=== PATIENT | male | born 1945 | race Caucasian/White ===

== ENCOUNTER 2025-09-20 14:24 | Outpatient (REF) | payer MEDICARE, SELFPAY ==
--- OUTSIDE RECORDS SUMMARY | 2025-09-20 16:21 | XMS_ITS | Clinical Summary ---
Author Organization [facility] Address [address] [place] [address] Phone Care Team Providers Care Senior Fire Protection Engineer Name Role Phone Michael Oneill MD Primary Care Provider Encounters Date Type Department Care Team Description 09/08/2025 7:22 AM EDT - 09/08/2025 11:59 PM EDT Hospital Encounter [address] [address] Michael Oneill MD Discharge Disposition: Home or Self Care 08/27/2025 Procedure Pass [address] [address] 08/27/2025 Transcribe Orders Virtual Department [address] [place] [address] Michael Oneill MD Radiculopathy, lumbar region (Primary Dx); Dorsalgia, unspecified; Kissing spine, lumbar region from Last 3 Months Social History Tobacco Use Types Packs/Day Years Used Date Smoking Tobacco: Never Assessed Education Answer Date Recorded Are you interested in more education? Not on dmitry e 03/25/2023 Are you concerned about learning? Not on file 03/25/2023 No 03/25/2023 No 03/25/2023 Digital Access Answer Date Recorded No 04/25/2023 No 04/25/2023 No 04/25/2023 Reliable internet access at home? Not on file 04/25/2023 Device with a working camera? Not on file Sex and Gender Information Value Date Recorded Sex Assigned at Male 03/07/2023 10:58 AM EDT Legal Sex Male 11:05 PM EDT Gender Identity Male 03/07/2023 10:51 AM EDT Sexual Orientation Straight 03/07/2023 10 :58 AM EDT Last Filed Vital Signs Vital Sign Reading Time Taken Comments Blood Pressure - - Pulse - - Temperature - - Respiratory Rate - - Oxygen Saturation - - Inhaled Oxygen Concentration - - Weight 93 kg (205 lb) 09/02/2025 7:49 PM EDT Height 177.8 cm (5' 10 ) 09/02/2025 7:49 PM EDT Body Mass Index 29.41 09/02/2025 7:49 PM EDT Plan of Treatment Health Maintenance Due Date Last Done Comments Adult Td,Tdap Booster 1946 LIPID PANEL 1946 DEPRESSION SCREENING 1958 SMOKING Hx and SMOKELESS TOBACCO SCREENING 1959 HEPATITIS C SCREENING 1964 PNEUMOCOCCAL VACCINES (50+ years) (1 of 1 - PCV) 1996 ZOSTER VACCINES (1 of 2) 1996 RSV VACCINE (1 - 1-dose 75+ series) 2021 INFLUENZA VACCINE (#1) 2025 , 10/14/2022, 08/27/2021, Additional history exists COVID-19 VACCINE ( season) 2025 09/05/2023, 08/27/2022, 09/30/2021, Additional history exists HEPATITIS A VACCINES Aged Out No long er eligible based on patient's age to complete this topic HIB VACCINES Aged Out No longer eligi ble based on patient's age to complete this topic MENINGOCOCCAL VACCINES (ACWY) Aged Out No longer eligible based on patient's age to complete this topic MENINGOCOCCAL VACCINES (B) Aged Out N o longer eligible based on patient's age to complete this topic Medical Devices Not on file Procedures Procedure Name Priority Date/Time Associated Diagnosis Comments MRI LUMBAR SPINE (NEURO) WITHOUT CONTRAST Routine 09/08/2025 8:44 AM EDT Radiculopathy, lumbar region Dorsalgia, unspecified Kissing spine, lumbar region from Last 3 Months Results * MRI LUMBAR SPINE (NEURO) WITHOUT CONTRAST (09/08/2025 8:44 AM EDT) Anatomical Region Laterality Modality L-spine Magnetic Resonan ce 09/11/2025 8:53 AM EDT Impressions 09/11/2025 9:28 AM EDT 1. Extensive degenerative disc disease and facet joint arthropathy at multiple levels, with mild canal stenosis at multiple levels, as discussed above. 2. Multilevel foramina stenosis, moderate at multiple levels, as above. 3. Probable renal cysts. Narrative 09/11/2025 9:28 AM EDT MRI LUMBAR SPINE (NEURO) WITHOUT CONTRAST Referring clinician's provided indication for this examination in Epic: Outside Radiology Order; radiculopathy TECHNIQUE: MRI LUMBAR SPINE (NEURO) WITHOUT CONTRAST Multi-sequence, multi-planar MRI of the lumbar spine was performed without intravenous contrast. COMPARISON: Lumbar spine MRI March 23, 2023. FINDINGS: LUMBAR SPINE: Alignment and Vertebrae: Minimal anterolisthesis at L2-L3, slightly more prominent in this exam. Vertebral body height is normal. No compression fracture. Marrow: Marrow is slightly heterogeneous. No worrisome bone marrow replacing lesion. Possibility focal fat or small bone hemangioma at L2. Discs and Endplates: Loss of intervertebral disc height and signal from L1-L2 through L5-S1, severe at L5-S1 level. Schmorl's nodes are seen at L1-L2 with Modic type II endplate changes. Small Schmorl's nodes also seen at L3 and L4 inferior endplates. Compared to March 23, 2023 there is possible slight decreased height of the L1- L2 and L2-3 intervertebral disc spaces, otherwise other findings are grossly stable. Conus: The tip of the conus ends at L1-L2. No compression. Soft Tissues: No prevertebral edema. Other Findings: The large T2 hyperintensities in the kidneys bilaterally, probably renal cyst, not completely included in the volume of acquisition. The largest in the left kidney measuring 5.7 cm on the right 5.7 cm best seen on the coronal localizer sequence. Findings by level: T12-L1: Probably minimal left subarticular zone disc protrusion. Mild facet joint arthropathy. No spinal or foraminal stenosis. L1-L2: Disc bulge and mild osteophytic ridging. Facet joint arthropathy. There is mild encroachment of the left subarticular zone. No high-grade spinal canal stenosis. Mild left greater than right foraminal stenosis. L2-L3: Disc bulge. Facet hypertrophy contributing to the moderate encroachment of the left subarticular zone and left transversing L3 nerve roots (5:19). There is mild spinal canal stenosis. Mild left greater than right foraminal stenosis. L3-L4: Disc bulge with a central disc protrusion in contact with both L4 nerve roots. Facet hypertrophy and ligamentum flavum thickening. Mild spinal canal stenosis. Nscf-cs-gcntasye bilateral foraminal stenosis. L4-L5: Disc bulge and osteophyte complex. Central disc protrusion slightly eccentric toward the left with possible left subarticular zone component with mild to moderate encroachment of the left L5 nerve roots. Facet arthropathy. Mild spinal canal stenosis. Moderate bilateral foraminal stenosis. L5-S1: Disc osteophyte complex lateralizing toward the left. Facet joint hypertrophy. No significant spinal canal stenosis. Moderate left and mild right foraminal stenosis. Procedure Note Waldo Dowd MD - 09/11/2025 MRI LUMBAR SPINE (NEURO) WITHOUT CONTRAST Referring clinician's provided indication for this examination in Epic:Outside Radiology Order; radiculopathy TECHNIQUE: MRI LUMBAR SPINE (NEURO) WITHOUT CONTRAST Multi-sequence, multi-planar MRI of the lumbar spine was performed withoutintravenous contrast. COMPARISON: Lumbar spine MRI March 23, 2023. FINDINGS: LUMBAR SPINE: Alignment and Vertebrae: Minimal anterolisthesis at L2-L3, slightly moreprominent in this exam. Vertebral body height is normal. No compressionfracture. Marrow: Marrow is slightly heterogeneous. No worrisome bone marrowreplacing lesion. Possibility focal fat or small bone hemangioma at L2. Discs and Endplates: Loss of intervertebral disc height and signal fromL1-L2 through L5-S1, severe at L5-S1 level. Schmorl's nodes are seen atL1-L2 with Modic type II endplate changes. Small Schmorl's nodes also seenat L3 and L4 inferior endplates. Compared to March 23, 2023 there ispossible slight decreased height of the L1-L2 and L2-3 intervertebral discspaces, otherwise other findings are grossly stable. Conus: The tip of the conus ends at L1-L2. No compression. Soft Tissues: No prevertebral edema. Other Findings: The large T2 hyperintensities in the kidneys bilaterally,probably renal cyst, not completely included in the volume of acquisition.The largest in the left kidney measuring 5.7 cm on the right 5.7 cm bestseen on the coronal localizer sequence. Findings by level: T12-L1: Probably minimal left subarticular zone disc protrusion. Mildfacet joint arthropathy. No spinal or foraminal stenosis. L1-L2: Disc bulge and mild osteophytic ridging. Facet joint arthropathy.There is mild encroachment of the left subarticular zone. No high-gradespinal canal stenosis. Mild left greater than right foraminal stenosis. L2-L3: Disc bulge. Facet hypertrophy contributing to the moderateencroachment of the left subarticular zone and left transversing L3 nerveroots (5:19). There is mild spinal canal stenosis. Mild left greater thanright foraminal stenosis. L3-L4: Disc bulge with a central disc protrusion in contact with both K0jcrcs roots. Facet hypertrophy and ligamentum flavum thickening. Mildspinal canal stenosis. Uxfi-qk-ahprijfv bilateral foraminal stenosis. L4-L5: Disc bulge and osteophyte complex. Central disc protrusion slightlyeccentric toward the left with possible left subarticular zone componentwith mild to moderate encroachment of the left L5 nerve roots. Facetarthropathy. Mild spinal canal stenosis. Moderate bilateral foraminalstenosis. L5-S1: Disc osteophyte complex lateralizing toward the left. Facet jointhypertrophy. No significant spinal canal stenosis. Moderate left and mildright foraminal stenosis. IMPRESSION: 1. Extensive degenerative disc disease and facet joint arthropathy atmultiple levels, with mild canal stenosis at multiple levels, as discussedabove. 2. Multilevel foramina stenosis, moderate at multiple levels, as above. 3. Probable renal cysts. Michael Oneill MD G MR XSPECIALTY Final Resu lt from Last 3 Months Insurance MEDICARE PART A & B [employer] MEDICARE SUPPLEMENT MEDICARE PART A & B [employer] MEDICARE SUPPLEMENT MEDICARE PART A & B MEDICARE PART A & B MEDICARE PART A & B [facility] [employer] MEDICARE SUPPLEMENT MEDICARE PART A & B MEDICARE PART A & B [employer] MEDICARE SUPPLEMENT MEDICARE PART A & B [employer] MEDICARE SUPPLEMENT MEDICARE PART A & B [facility] [employer] MEDICARE SUPPLEMENT Care Teams Senior Fire Protection Engineer Relationship Specialty Start Date End Date Michael Oneill MD [facility] [place] [address] [email or web address] PCP - General Family Medicine 03/07/23 Additional Source Comments The information contained in this document represents components of the legal health record. It is not the complete legal health record.[facility]
--- OUTSIDE RECORDS SUMMARY | 2025-09-20 16:22 | XMS_ITS | Encounter Summary ---
Author Organization [facility] Address [address] [place] [address] Phone Care Team Providers Care Business Process Analyst Name Role Phone Michael Oneill MD Primary Care Provider [phone] Encounter Details Date Type Department Care Team (Late st Contact Info) Description 08/27/2025 Procedure Pass [facility], [address] [address] Social History Tobacco Use Types Packs/Day Years [...] Orientation Straight 03/07/2023 10 :58 AM EDT documented as of this encounter Plan of Treatment Not on file documented as of this encounter Visit Diagnoses Not on filedocumented in this encounter Care Teams Business Process Analyst Relationship Specialty Start Date End Date Michael Oneill MD [address] [place] [address] [email or web address] PCP - General Family Medicine 03/07/23 documented as of this encounter Additional Source Comments The information contained in this document represents components of the legal health record. It is not the complete legal health record.[facility]
--- OUTSIDE RECORDS SUMMARY | 2025-09-20 16:22 | XMS_ITS | Encounter Summary ---
Author Organization [facility] Address [address] [place] [address] Phone Care Team Providers Care Popcorn Attendant Name Role Phone Michael Oneill MD Primary Care Provider [phone] Encounter Details Date Type Department Care Team (Late st Contact Info) Description 03/07/2023 Procedure Pass [facility], [address] [address] Social History Tobacco Use Types Packs/Day Years Used Date Smoking Tobacco: Never Assessed Sex and Gender Information Value Date Recorded Sex Assigned at Male 03/07/2023 10:58 AM EDT Legal Sex Male 11:05 PM EDT Gender Identity Male 03/07/2023 10:51 AM EDT Sexual Orientation Straight 03/07/2023 10 :58 AM EDT documented as of this encounter Plan of Treatment Not on file documented as of this encounter Visit Diagnoses Not on filedocumented in this encounter Care Teams Popcorn Attendant Relationship Specialty Start Date End Date Michael Oneill MD [address] [place] [address] PCP - General Family Medicine 03/07/23 documented as of this encounter Additional Source Comments The information contained in this document represents components of the legal health record. It is not the complete legal health record.[facility]
--- OUTSIDE RECORDS SUMMARY | 2025-09-20 16:22 | XMS_ITS | Encounter Summary ---
Author Organization [facility] Address [address] [place] [address] Phone Care Team Providers Care Court Security Officer Name Role Phone Michael Oneill MD Primary Care Provider + [phone] Reason for Referral * MRI/CAT Scan - Closed Specialty Diagnoses / Procedures Referred By Contac t Referred To Contact Radiology Diagnoses Radiculopathy, lumbar region Dorsalgia, unspecified Kissing spine, lumbar region Procedures MRI Lumbar Spine Michael Oneill MD [address] [place] [address] Phone: tel: fax: [email or web address] Referral ID Status Reason Start Date Expiration Date Visits Re quested Visits Authorized [id number] Closed 08/27/2025 08/27/2026 1 1 Encounter Details Date Type Department Care Team (Latest Contact Info) Description 08/27/2025 Transcribe Orders Virtual Department [address] [place] [address] Michael Oneill MD [address] [place], [place] [id number] [email or web address] Radiculopathy, lumbar region (Primary Dx); Dorsalgia, unspecified; Kissing spine, lumbar region Social History Tobacco Use Types Packs/Day Years [...] on file documented as of this encounter Results * MRI LUMBAR SPINE (NEURO) WITHOUT [...] ligamentum flavum thickening. Mild spinal canal stenosis. Yvna-ee-fbgoxoen bilateral foraminal stenosis. L4-L5: Disc bulge and [...] central disc protrusion in contact with both B7paixm roots. Facet hypertrophy and ligamentum flavum thickening. Mildspinal canal stenosis. Jfnu-xl-iqgriwfe bilateral foraminal stenosis. L4-L5: Disc bulge and [...] 3. Probable renal cysts. Michael Oneill MD [facility] MR XSPECIALTY Final Resu lt documented in this encounter Visit Diagnoses Diagnosis Radiculopathy, lumbar region- Primary Thoracic or lumbosacral neuritis or radiculitis, unspecified Dorsalgia, unspecified Kissing spine, lumbar region Radiculopathy, lumbar region Thoracic or lumbosacral neuritis or radiculitis, unspecified Dorsalgia, unspecified Kissing spine, lumbar region documented in this encounter Care Teams Court Security Officer Relationship Specialty Start Date End Date Michael Oneill MD [address] [place] [address] [email or web address] PCP - General Family Medicine 03/07/23 documented as of this encounter Additional Source Comments The information contained in this document represents components of the legal health record. It is not the complete legal health record.[facility]
== END 2025-09-20 14:25 | disposition home or self-care (01) ==
LOC: CF 14:24
DX: Z13.89 Encounter for screening for other disorder (principal)

== ENCOUNTER 2025-09-27 09:19 | Outpatient (AMB) | payer MEDICARE, OTHER, SELFPAY ==
--- OUTSIDE RECORDS SUMMARY | 2025-09-25 23:59 | XMS_ITS | Continuity of Care Document ---
Author Organization [facility] Address [address] [place] [address]- Care Team Providers Care Consumer Relations Specialist Name Role Phone Nino LIM, Michael Rascon Primary Care Physician Encounter [facility] Date(s): 08/26/25 - 09/25/25 [facility] [address] [place], [place] [address] Encounter Type: Triage Allergies, Adverse Reactions, Alerts No Known Allergies Immunizations Given and Recorded Vaccine Date Status Refusal Reason influenza virus vaccine, inactivated 08/15/25 Give n influenza virus vaccine, inactivated 10/04/24 Roe rded influenza virus vaccine, inactivated 10/14/22 Give n influenza virus vaccine, inactivated 08/27/21 Roe rded influenza virus vaccine, inactivated 08/27/20 Roe rded influenza virus vaccine, inactivated 09/11/19 Roe rded influenza virus vaccine, inactivated 1 09/19/18 Gi clifford influenza virus vaccine, inactivated 2 09/19/17 Re corded influenza virus vaccine, inactivated 08/17/17 Roe rded influenza virus vaccine, inactivated 08/25/16 Roe rded influenza virus vaccine, inactivated 3 08/20/16 Re corded influenza virus vaccine, inactivated 10/01/15 Reo rded influenza virus vaccine, inactivated 09/26/15 Roe rded influenza virus vaccine, inactivated 4 08/17/11 Gi clifford SARS-CoV-2(COVID-19)mRNA-LNP vac([id number]) 09/05/23 Recorded [id number] bivalent booster vax 08/27/22 Recorded SARS-CoV-2 (COVID-19) mRNA-1273 vaccine 09/30/21 R ecorded SARS-CoV-2 (COVID-19) mRNA-1273 vaccine 01/29/21 R ecorded SARS-CoV-2 (COVID-19) mRNA-1273 vaccine 12/30/20 R ecorded Influenza Virus Vaccine (oldterm) 10/04/19 Recorde d Tetanus Toxoid 11/25/16 Recorded pneumococcal 13-valent vaccine 06/04/15 Given pneumococcal 23-valent vaccine 5 10/06/11 Given tetanus-diphtheria toxoids (Td) 03/24/06 Given 1Result Comment: [09/19/2018] [facility] # [id number] 2Location History: [facility] 3Location History: [facility] 4Admin Note: got at [facility] early Jul 5Admin Note: vis given09/02/09 Medications allopurinol 300 mg oral tablet 1, tablet, By Mouth, Daily, # 90 tablet, Refills 3, Tot. Refills 3, Maintenance, 08/15/25 10:47:00 AM EDT, Route to Pharmacy Electronically, [facility]/pharmacy #[id number], 176.5, cm, 08/15/25 9:43:00 EDT, Height Start Date: 08/15/25 Status: Ordered Medication Dispense Status: Completed Quantity: 90.0 Unit: tablet Total Allowed Fills: 4 Fills Dispensed: 0 Indications: Gout, unspecified; fluocinonide 0.05% topical ointment See Instructions, PRN Rash, 1 application Topically 3 times a day. apply a thin film to affected area, # 60 Gm, 0 Refills, Maintenance, 07/16/25 6:33:00 PM EDT, Ointment, [facility]/pharmacy #[id number], Partial fill upon patient request if the prescription is for a schedule II opioid drug., 1 application Topically 3 times a day. apply a thin film ; to affected area,PRN:Rash, 176.5, cm, 07/16/25 18:08:00 EDT, Height Start Date: 07/16/25 Status: Ordered Medication Dispense Status: Completed Quantity: 60.0 Unit: g Total Allowed Fills: 1 Fills Dispensed: 0 Restasis Every 12 hours, 0 Refills, Maintenance, 08/09/24 7:51:00 AM EDT, Partial fill upon patient request if the prescription is for a schedule II opioid drug. Start Date: 08/09/24 Status: Ordered Medication Dispense Status: Completed Total Allowed Fills: 1 Fills Dispensed: 0 tadalafil 5 mg oral tablet 1 tablet = 5 mg, By Mouth, Daily, # 30 tablet, 5 Refills, Maintenance, 02/20/25 1:30:00 PM EDT, [facility][id number], 176.5, cm, 08/09/24 7:46:00 EDT, Height Start Date: 02/20/25 Stop Date: 08/19/25 Status: Ordered Medication Dispense Status: Completed Quantity: 30.0 Unit: tablet Total Allowed Fills: 6 Fills Dispensed: 0 traMADol 50 mg oral tablet 1 tablet = 50 mg, By Mouth, Every 12 hours, PRN as needed for pain, for 14 days, # 28 tablet, 0 Refills, Acute 09/26/25 4:43:00 PM EDT, 09/12/25 4:43:00 PM EDT, Tablet, [id number], Partial fill upon patient request if the prescription is for a schedule II opioid drug., 176.5, cm, 08/15/25 9:43:00 EDT, Height Start Date: 09/12/25 Stop Date: 09/26/25 Status: Ordered Medication Dispense Status: Completed Quantity: 28.0 Unit: tablet Total Allowed Fills: 1 Fills Dispensed: 0 Indications: Other intervertebral disc degeneration, lumbar region without mention of lumbar back pain or lower extremity pain; Problem List Condition Confirmation Course Effective Dates Status Health St atus Informant Chronic kidney disease, stage 3a 1 Confirmed Active Lumbar degenerative disc disease Confirmed Active Do Not Resuscitate 2 Confirmed 05/30/13 Active Family history of prostate cancer Confirmed Active Gout, arthropathy Confirmed Active Obese class I Confirmed Active MARIA DEL ROSARIO (obstructive sleep apnea) Confirmed Active 1baseline Cr 1.3-1.4 2per request and detailed discussion. Social History Social History Type Response Sexual Gender identity: Regina ntifies as male. Smoking Status Former smoker; Tobac co user in household: No; Other: Quit 2008; entered on: 07/09/15 Sex Sex Representation Male (finding) Patient Care team information Care Team Personnel Name: Nino LIM, Michael Rascon Position: S Physician - Primary Care Member Role: PCP Address: [address] [place], [place] [address], [place] [address]- Telecom: Care Team Related Persons Name: AVERY GALINDO Insurance Providers Guarantor name: JENNIE DURBIN Health Plan Information #: 1 Payer: MEDICARE B Payer Identifier: NA Member Number: [id number] Group Number: NA Subscriber Identifier: NA Relationship to Subscriber: self Coverage Type: NA Coverage Verification Date: NA Telecom: NA Address: NA Health Plan Information #: 2 Payer: [employer] Payer Identifier: NA Member Number: [id number] Group Number: [id number] Subscriber Identifier: NA Relationship to Subscriber: spouse Coverage Type: Commercial Indemnity Coverage Verification Date: NA Telecom: NA Address:
--- OUTSIDE RECORDS SUMMARY | 2025-09-26 23:59 | XMS_ITS | Continuity of Care Document ---
Author Organization [facility] Address [address] [place] [address]- Care Team Providers Care Gang Mower Operator Name Role Phone Nino LIM, Michael Rascon Primary Care Physician [facility]25 - 09/26/25 [facility] [address] [place], [place] [address] Encounter Type: Triage Allergies, Adverse Reactions, Alerts [...] Re corded influenza virus vaccine, inactivated 10/01/15 Roe rded influenza virus vaccine, inactivated 09/26/15 Roe rded influenza virus vaccine, inactivated 4 08/17/11 Gi clifford SARS-CoV-2(COVID-19)mRNA-LNP vac([id number]) 09/05/23 Recorded [id number] bivalent booster vax 08/27/22 Recorded SARS-CoV-2 (COVID-19) mRNA-1273 vaccine 09/30/21 R ecorded SARS-CoV-2 (COVID-19) mRNA-1273 vaccine 01/29/21 R ecorded SARS-CoV-2 (COVID-19) mRNA-1273 vaccine 12/30/20 R ecorded Influenza Virus Vaccine (oldterm) 10/04/19 Recorde d Tetanus Toxoid 11/25/16 Recorded pneumococcal 13-valent vaccine 06/04/15 Given pneumococcal 23-valent vaccine 5 10/06/11 Given tetanus-diphtheria toxoids (Td) 03/24/06 Given 1Result Comment: [09/19/2018] [facility] # [id number] 2Location History: [facility] 3Location History: [facility] 4Admin Note: got at [facility] early Jul 5Admin Note: vis given09/02/09 Medications allopurinol 300 mg oral tablet 1, tablet, By Mouth, Daily, # 90 tablet, Refills 3, Tot. Refills 3, Maintenance, 08/15/25 10:47:00 AM EDT, Route to Pharmacy Electronically, [facility]/pharmacy #[id number], 176.5, cm, 08/15/25 9:43:00 EDT, Height Start Date: 08/15/25 Status: Ordered Medication Dispense Status: Completed Quantity: 90.0 Unit: tablet Total Allowed Fills: 4 Fills Dispensed: 0 Indications: Gout, unspecified; fluocinonide 0.05% topical ointment See Instructions, PRN Rash, 1 application Topically 3 times a day. apply a thin film to affected area, # 60 Gm, 0 Refills, Maintenance, 07/16/25 6:33:00 PM EDT, Ointment, [facility]/pharmacy #[id number], Partial fill upon patient request if [...] Total Allowed Fills: 6 Fills Dispensed: 0 Problem List Condition Confirmation Course Effective Dates [...] - Primary Care Member Role: PCP Address: [address] [place] [address] Telecom: Care Team Related Persons Name: AVERY GALINDO Insurance Providers Guarantor name: JENNIE GALINDO Health Plan Information #: 1 Payer: MEDICARE B Payer Identifier: NA Member Number: [id number] Group Number: NA Subscriber Identifier: NA Relationship to Subscriber: self Coverage Type: NA Coverage Verification Date: NA Telecom: NA Address: NA Health Plan Information #: 2 Payer: [facility] [employer] Payer Identifier: NA Member Number: [id number] Group Number: [id number] Subscriber Identifier: NA Relationship to Subscriber: spouse Coverage Type: Commercial Indemnity Coverage Verification Date: NA Telecom: NA Address:
--- OUTSIDE RECORDS SUMMARY | 2025-09-26 23:59 | XMS_ITS | Continuity of Care Document ---
Author Organization [facility] Address [address] [place] [address]- Care Team Providers Care Wet Sander Name Role Phone Nino LIM, Michael Rascon Primary Care Physician [phone] [facility]counter [facility] 08[facility]25 - 09/26/25 [facility] [address] [place], [place] [address] Encounter Type: Triage Allergies, [...] vaccine, inactivated 4 08/17/11 Gi clifford SARS-CoV-2(COVID-19)mRNA-LNP vac([id number]) 09/05/23 Recorded [id number] bivalent booster vax 08/27/22 Recorded SARS-CoV-2 (COVID-19) mRNA-1273 vaccine 09/30/21 R ecorded SARS-CoV-2 (COVID-19) mRNA-1273 vaccine 01/29/21 R ecorded SARS-CoV-2 (COVID-19) mRNA-1273 vaccine 12/30/20 R ecorded Influenza Virus Vaccine (oldterm) 10/04/19 Recorde d Tetanus Toxoid 11/25/16 Recorded pneumococcal 13-valent vaccine 06/04/15 Given pneumococcal 23-valent vaccine 5 10/06/11 Given tetanus-diphtheria toxoids (Td) 03/24/06 Given 1Result Comment: [09/19/2018] [facility] # [id number] 2Location History: [facility] 3Location History: [facility] 4Admin Note: got at [facility] early Jul 5Admin Note: vis given09/02/09 Medications allopurinol 300 mg oral tablet 1, tablet, By Mouth, Daily, # 90 tablet, Refills 3, Tot. Refills 3, Maintenance, 08/15/25 10:47:00 AM EDT, Route to Pharmacy Electronically, [facility]/pharmacy #[id number], 176.5, cm, 08/15/25 9:43:00 EDT, Height Start Date: 08/15/25 Status: Ordered Medication Dispense Status: Completed Quantity: 90.0 Unit: tablet Total Allowed Fills: 4 Fills Dispensed: 0 Indications: Gout, unspecified; fluocinonide 0.05% topical ointment See Instructions, PRN Rash, 1 application Topically 3 times a day. apply a thin film to affected area, # 60 Gm, 0 Refills, Maintenance, 07/16/25 6:33:00 PM EDT, Ointment, [facility]/pharmacy #[id number], Partial fill upon patient request if [...] Personnel Name: Nino LIM, Michael Rascon Position: [facility] Physician - Primary Care Member Role: PCP Address: [address] [place] [address] Telecom: Care Team Related Persons Name: AVERY GALINDO Insurance Providers Guarantor name: JENNIE GALINDO Health Plan Information #: 1 Payer: MEDICARE B Payer Identifier: NA Member Number: [id number] Group Number: NA Subscriber Identifier: NA Relationship to Subscriber: self Coverage Type: NA Coverage Verification Date: NA Telecom: NA Address: NA Health Plan Information #: 2 Payer: [facility] [employer] Payer Identifier: NA Member Number: [id number] Group Number: [id number] Subscriber Identifier: NA Relationship to Subscriber: spouse Coverage Type: Commercial Indemnity Coverage Verification Date: NA Telecom: NA Address:
--- NOTE | 2025-09-27 09:32 | A.SPINEOV_ITS ---
Vital Signs 09/27/25 09:33 Height 5 ft 10 in Weight 207 lb BMI 29.7 Intake Visit Reasons: LBP Intake Note: Mr. Hong is here today c/o low back pain that radiates all the way down the buttocks and back of the thigh causing numbness and Tingling. MRI done at [facility]. Itinerant Teacher Assistant Required: No Allergies No Known Allergies Allergy (Verified 09/27/25 09:33) Physical Exam Vital Signs: BMI result Body Mass Index 29.7 Assessment & Plan Assessment & Plan (1) Back pain: Code(s): M54.9 - Dorsalgia, unspecified Category: Medical Plan Dear Dr Doyle, Thank you for referring Mr Hong to our office today. He is a very nice 80-year-old gentleman with a history of chronic low back pain radiating down the back of his legs for 50+ years. 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 He has the pain when he sitting, standing or even lying down at times. He has a hard time walking distances as well. He is frustrated because he can not do things with his lactate simple short car trips etc.. He has been through physical therapy 5 or 6 times. He takes medications anti- inflammatories etc. but has to limit how much he takes because of his kidney disease. The only thing that has ever helped him and gave him 100% relief was injections done at the [facility]. He had L4-5 and L5-S1 bilateral facet blocks done it for 3 days had complete pain relief. He is following up with us here in the office today to see if there is anything we can do surgically for him. PMH: Reasonably healthy gentleman, he is see history of high cholesterol, gout, chronic kidney disease stage 3. He has never had surgery. Denies any cardiovascular, pulmonary, renal or liver disease. No history of major abdominal surgeries, bleeding disorders, blood clots or cancer. Social hx: Quit smoking many years ago, no recreational drugs or alcohol to report Medications: Tramadol, tadalafil, allopurinol, cyclobenzaprine and Advil Allergies: None Physical exam: Awake alert oriented no acute distress, he is able to stand and walk with normal gait, normal strength and normal reflexes Imaging review: Lumbar MRI reveals yxgq-jn-gehbxtrm degenerative disc disease in the upper lumbar spine, however at L5-S1 he has moderate to severe disc collapse. No significant central or foraminal stenosis. He has moderate facet arthropathy at L4-5 and L5-S1 Impression: 80-year-old male with chronic low back pain for 50 years, with deg enerative disc disease and facet arthropathy as outlined above mostly in the lower lumbar levels. The patient has been through generous amounts of conservative treatment through the years. The only thing that has provided him relief that was 100% was facet blocks done at the [facility]. This was L4-5 and L5-S1. In terms of intervention and surgery, the simple and most straight forward thing to do would be to consider rhizotomy of the median branch at the L4-5 and L5-S1 levels since he had such great relief with the facet blocks. We are going to send him back to [place] to do a follow-up facet block at these levels and if it is positive, Dr. Martinez met with him and will consider endoscopic rhizotomy. We will follow up with him after the injections. Thank you for allowing us to care for your patient. The total time spent with this visit with this patient was 45 minutes reviewing history, physical exam, lumbar imaging review, and implementation of treatment plan or further diagnostic testing Dillon Martinez MD,PhD [facility] Orders: Referrals Pain Management Referral M54.9 - Dorsalgia, unspecified Coding Level of Care Code New Pt Level 4 (40185) Diagnoses Back pain M54.9
[2025-09-27 09:33] VITALS: BMI 29.7
--- OUTSIDE RECORDS SUMMARY | 2025-09-27 10:19 | XMS_ITS | Clinical Summary ---
Author Organization [facility] Address [address] [place] [address] Phone Care Team Providers Care Solar Sales Name Role Phone Michael Oneill MD Primary Care Provider [phone] Encounters Date Type Department Care Team Description 09/08/2025 7:22 AM EDT - 09/08/2025 11:59 PM EDT Hospital Encounter [address] [address] Michael Oneill MD Discharge Disposition: Home or Self Care 08/27/2025 Procedure Pass [address] [address] 08/27/2025 Transcribe Orders Virtual Department [address] [place] [address] Michael Oneill MD Radiculopathy, lumbar region (Primary [...] ligamentum flavum thickening. Mild spinal canal stenosis. Tykx-sa-qfrojgzv bilateral foraminal stenosis. L4-L5: Disc bulge and [...] central disc protrusion in contact with both E7ubaau roots. Facet hypertrophy and ligamentum flavum thickening. Mildspinal canal stenosis. Wgqg-db-yhygmuym bilateral foraminal stenosis. L4-L5: Disc bulge and [...] Months Insurance MEDICARE PART A & B [employer] MEDICARE SUPPLEMENT MEDICARE PART A & B [employer] MEDICARE SUPPLEMENT MEDICARE PART A & B MEDICARE PART A & B MEDICARE PART A & B [facility] [employer] MEDICARE SUPPLEMENT MEDICARE PART A & B MEDICARE PART A & B [employer] MEDICARE SUPPLEMENT MEDICARE PART A & B [employer] MEDICARE SUPPLEMENT MEDICARE PART A & B [facility] [employer] MEDICARE SUPPLEMENT Care Teams Solar Sales Relationship Specialty Start Date End Date Michael Oneill [facility] [place] [address] [email or web address] PCP - General Family Medicine 03/07/23 Additional Source Comments The information contained in this document represents components of the legal health record. It is not the complete legal health record.[facility]
--- OUTSIDE RECORDS SUMMARY | 2025-09-27 10:19 | XMS_ITS | Encounter Summary ---
Author Organization [facility] Address [address] [place] [address] Phone Care Team Providers Care Snow Technician Name Role Phone Michael Oneill MD Primary Care Provider [phone] Encounter Details Date Type Department Care Team (Late st Contact Info) Description 03/07/2023 Procedure Pass [facility], [address] [address] Social History Tobacco Use Types Packs/Day Years [...] on filedocumented in this encounter Care Teams Snow Technician Relationship Specialty Start Date End Date Michael Oneill MD [address] [place] [address] PCP - General Family Medicine 03/07/23 documented as of this encounter Additional Source Comments The information contained in this document represents components of the legal health record. It is not the complete legal health record.[facility]
--- OUTSIDE RECORDS SUMMARY | 2025-09-27 10:19 | XMS_ITS | Encounter Summary ---
Author Organization [facility] Address [address] [place] [address] Phone Care Team Providers Care Retail Wireless Sales Representative Name Role Phone Michael Oneill MD Primary Care Provider [phone] Encounter Details Date Type Department Care Team (Late st Contact Info) Description 08/27/2025 Procedure Pass [facility], [address] [address] Social History Tobacco Use Types Packs/Day Years [...] on filedocumented in this encounter Care Teams Retail Wireless Sales Representative Relationship Specialty Start Date End Date Michael Oneill MD [address] [place] [address] [email or web address] PCP - General Family Medicine 03/07/23 documented as of this encounter Additional Source Comments The information contained in this document represents components of the legal health record. It is not the complete legal health record.[facility]
--- OUTSIDE RECORDS SUMMARY | 2025-09-27 10:19 | XMS_ITS | Encounter Summary ---
Author Organization [facility] Address [address] [place] [address] Phone Care Team Providers Care Liquid Floor And Wall Applier Name Role Phone Michael Oneill MD Primary Care Provider [phone] Reason for Referral * MRI/CAT Scan - Closed Specialty Diagnoses / Procedures Referred By Contac t Referred To Contact Radiology Diagnoses Radiculopathy, lumbar region Dorsalgia, unspecified Kissing spine, lumbar region Procedures MRI Lumbar Spine Michael Oneill MD [address] [place] [address] Phone: tel: fax: [email or web address] Referral ID Status Reason Start Date Expiration Date Visits Re quested Visits Authorized [id number] Closed 08/27/2025 08/27/2026 1 1 Encounter Details Date Type Department Care Team (Latest Contact Info) Description 08/27/2025 Transcribe Orders Virtual Department [address] [place] [id number] Michael Oneill MD [address] [place], [place] [phone] [email or web address] Radiculopathy, lumbar region (Primary Dx); Dorsalgia, [...] ligamentum flavum thickening. Mild spinal canal stenosis. Tues-cz-kaqsxzya bilateral foraminal stenosis. L4-L5: Disc bulge and [...] central disc protrusion in contact with both V5picbu roots. Facet hypertrophy and ligamentum flavum thickening. Mildspinal canal stenosis. Ebkh-or-pwafqdck bilateral foraminal stenosis. L4-L5: Disc bulge and [...] 3. Probable renal cysts. Michael Oneill MD [facility] Final Resu lt documented in this encounter Visit Diagnoses Diagnosis Radiculopathy, lumbar region- Primary Thoracic or lumbosacral neuritis or radiculitis, unspecified Dorsalgia, unspecified Kissing spine, lumbar region Radiculopathy, lumbar region Thoracic or lumbosacral neuritis or radiculitis, unspecified Dorsalgia, unspecified Kissing spine, lumbar region documented in this encounter Care Teams Liquid Floor And Wall Applier Relationship Specialty Start Date End Date Michael Oneill MD [address] [place] [address] [email or web address] PCP - General Family Medicine 03/07/23 documented as of this encounter Additional Source Comments The information contained in this document represents components of the legal health record. It is not the complete legal health record.[facility]
== END 2025-09-27 10:51 | disposition home or self-care (01) ==
PROVIDERS: PCP Internal Medicine; Referring Provider Family Medicine; Visit Provider Physician Assistant
DX: M54.9 Dorsalgia, unspecified (principal)
CPT/HCPCS: 99204

== ENCOUNTER → 2025-09-27 09:19 | Outpatient (BNVA) | payer MEDICARE, SELFPAY | PROVIDERS: PCP Internal Medicine; Referring Provider Family Medicine; Visit Provider Physician Assistant | DX: M51.372 Other intervertebral disc degeneration, lumbosacral region with discogenic back pain and lower extremity pain (principal); G62.89 Other specified polyneuropathies; M47.817 Spondylosis without myelopathy or radiculopathy, lumbosacral region | CPT/HCPCS: 99202 ==